=== PATIENT | male | born 1945 ===

== ENCOUNTER 2023-05-01 06:56 | Outpatient (REF) | payer MEDICARE, SELFPAY ==
[2023-05-01 07:05] LABS: MANUAL DIFF FLAG NO
[2023-05-01 07:24] LABS: Basophils Percent Auto 0.8 % (0-2); Eosinophils Absolute Auto 0.2 X10*3/uL (0.0-0.4); Eosinophils Percent Auto 3.5 % (0-4); Hematocrit 29.3 % (42.0-52.0); Hemoglobin 9.9 g/dl (14.0-18.0); Imm Gran Abs Auto 0.02 X10*3/uL (0.00-0.03); Imm Gran Pct Auto 0.4 % (0.0-0.4); Lymphocytes Absolute Auto 1.5 X10*3/uL (1.2-4.9); Lymphocytes Percent Auto 31.4 % (20-40); Mean Corpuscular HGB Conc 33.8 g/dl (31.0-36.0); Mean Corpuscular Hemoglobin 30.2 pg (27.0-33.0); Mean Corpuscular Volume 89.3 fL (80.0-98.0); Mean Platelet Volume 9.7 fL (9.4-12.4); Monocytes Absolute Auto 0.4 X10*3/uL (0.1-1.2); Neutrophils Absolute Auto 2.7 x10*3/uL (2.0-8.3); Neutrophils Percent Auto 54.9 % (45-73); Platelet Count 191 X10*3/uL (160-400); Red Blood Count 3.28 X10*6/uL (4.60-5.80); Red Cell Distribution Width 13.7 % (11.0-16.0); White Blood Count 4.9 X10*3/uL (4.8-10.8)
[2023-05-01 07:31] LABS: Alanine Aminotransferase 14 U/L (0-40); Albumin Level 3.3 g/dL (3.5-5.0); Alkaline Phosphatase 73 U/L (39-117); Anion Gap 11 (12-20); Aspartate Amino Transferase 19 U/L (5-37); Bilirubin Total 0.2 mg/dL (0.0-1.0); Blood Urea Nitrogen 22 mg/dL (9-16); Calcium 9.2 mg/dL (8.4-10.2); Carbon Dioxide 27 mmol/L (22-29); Chloride 106 mmol/L (96-108); Estimated Glomerular Filt Rate > 60; Glucose Random 80 mg/dL (60-115); Iron 55 mcg/dL (45-160); Percent Iron Saturation 24 % (15-50); Potassium 3.7 mmol/L (3.3-5.1); Sodium 140 mmol/L (135-145); Total Iron Binding Capacity 229 mcg/dL (228-428); Total Protein 6.6 g/dL (6.5-8.0); Unsaturated Iron Binding 174 ug/dL
[2023-05-01 07:42] LABS: Vitamin D 25-OH Total 20.1 ng/mL (>30)
[2023-05-01 07:49] LABS: Prostate Specific Antigen 0.81 ng/mL (<0.05-4.0); Vitamin B12 778 pg/mL (200-900)
[2023-05-04 06:44] LABS: TS Negative Control Passed; TS Panel A 0; TS Panel B 0; TS Positive Control Passed; TSpotTB Negative (Negative)
== END 2023-05-01 06:57 | disposition home or self-care (01) ==
LOC: HO.HSH2N 06:56
PROVIDERS: Visit Provider Internal Medicine Interventional Cardiology
DX: Z12.5 Encounter for screening for malignant neoplasm of prostate (principal); Z11.1 Encounter for screening for respiratory tuberculosis; I10 Essential (primary) hypertension; E03.9 Hypothyroidism, unspecified; D64.9 Anemia, unspecified; C61 Malignant neoplasm of prostate; F03.90 Unspecified dementia, unspecified severity, without behavioral disturbance, psychotic disturbance, mood disturbance, and anxiety
CPT/HCPCS: 36415; 80053; 82306; 82607; 83540; 84153; 84443; 85025; 86481

== ENCOUNTER 2023-05-04 11:19 | Outpatient (REF) | payer MEDICARE, SELFPAY | END 2023-05-04 11:20 | disposition home or self-care (01) | LOC: HO.HSH2N 11:19 | PROVIDERS: Visit Provider Internal Medicine Medical Oncology | DX: H57.89 Other specified disorders of eye and adnexa (principal) | CPT/HCPCS: 87070; 87077; 87186; 87205 ==

== ENCOUNTER 2023-05-08 07:20 | Outpatient (REF) | payer MEDICARE, SELFPAY ==
[2023-05-08 07:57] LABS: Lactate Dehydrogenase 266 U/L (118-273)
[2023-05-09 16:08] LABS: Immunoglobulin A 76 mg/dL (70-320); Immunoglobulin G 1636 mg/dL (600-1540)
== END 2023-05-08 07:21 | disposition home or self-care (01) ==
LOC: HO.HSH2N 07:20
PROVIDERS: Visit Provider Internal Medicine Interventional Cardiology
DX: D64.9 Anemia, unspecified (principal); D47.2 Monoclonal gammopathy
CPT/HCPCS: 36415; 82784; 83615

== ENCOUNTER 2023-09-08 06:43 | Outpatient (REF) | payer MEDICARE, SELFPAY ==
[2023-09-08 10:31] LABS: Prostate Specific Antigen 1.05 ng/mL (<0.05-4.0)
[2023-09-11 12:13] LABS: Testosterone, Total 11 ng/dL (250-1100)
== END 2023-09-08 06:44 | disposition home or self-care (01) ==
LOC: HO.HSH1N 06:43
PROVIDERS: Visit Provider Internal Medicine Interventional Cardiology
DX: Z12.5 Encounter for screening for malignant neoplasm of prostate (principal); C61 Malignant neoplasm of prostate
CPT/HCPCS: 36415; 84153; 84403

== ENCOUNTER 2023-09-20 09:42 | Outpatient (REF) | payer MEDICARE, SELFPAY ==
[2023-09-20 09:45] LABS: MANUAL DIFF FLAG NO
[2023-09-20 10:03] LABS: Alanine Aminotransferase 15 U/L (0-40); Albumin Level 3.3 g/dL (3.5-5.0); Alkaline Phosphatase 76 U/L (39-117); Anion Gap 12 (12-20); Aspartate Amino Transferase 18 U/L (5-37); Bilirubin Total 0.4 mg/dL (0.0-1.0); Blood Urea Nitrogen 20 mg/dL (9-16); Calcium 9.1 mg/dL (8.4-10.2); Carbon Dioxide 22 mmol/L (22-29); Chloride 106 mmol/L (96-108); Estimated Glomerular Filt Rate > 60; Glucose Random 145 mg/dL (60-115); Potassium 3.8 mmol/L (3.3-5.1); Sodium 136 mmol/L (135-145); Total Protein 7.1 g/dL (6.5-8.0)
[2023-09-20 10:07] LABS: Basophils Percent Auto 0.3 % (0-2); Eosinophils Percent Auto 0.2 % (0-4); Hematocrit 30.1 % (42.0-52.0); Hemoglobin 9.8 g/dl (14.0-18.0); Imm Gran Abs Auto 0.07 X10*3/uL (0.00-0.03); Imm Gran Pct Auto 0.8 % (0.0-0.4); Lymphocytes Absolute Auto 0.7 X10*3/uL (1.2-4.9); Lymphocytes Percent Auto 7.6 % (20-40); Mean Corpuscular HGB Conc 32.6 g/dl (31.0-36.0); Mean Corpuscular Hemoglobin 30.1 pg (27.0-33.0); Mean Corpuscular Volume 92.3 fL (80.0-98.0); Mean Platelet Volume 9.9 fL (9.4-12.4); Monocytes Absolute Auto 0.4 X10*3/uL (0.1-1.2); Monocytes Percent Auto 4.8 % (2-11); Neutrophils Absolute Auto 7.9 x10*3/uL (2.0-8.3); Neutrophils Percent Auto 86.3 % (45-73); Platelet Count 197 X10*3/uL (160-400); Red Blood Count 3.26 X10*6/uL (4.60-5.80); White Blood Count 9.1 X10*3/uL (4.8-10.8)
[2023-09-21 12:00] LABS: Adenovirus PCR Not Detected (Not Detect.); Bordetella parapertussis PCR Not Detected (Not Detect.); Bordetella pertussis PCR Not Detected (Not Detect.); Chlamydia pneumoniae PCR Not Detected (Not Detect.); Coronavirus 229E PCR Not Detected (Not Detect.); Coronavirus HKU1 PCR Not Detected (Not Detect.); Coronavirus NL63 PCR Not Detected (Not Detect.); Coronavirus OC43 PCR Not Detected (Not Detect.); Human metapneumovirus PCR Not Detected (Not Detect.); Influenza A PCR Not Detected (Not Detect.); Influenza B PCR Not Detected (Not Detect.); Mycoplasma pneumoniae PCR Not Detected (Not Detect.); Parainfluenza 1 PCR Not Detected (Not Detect.); Parainfluenza 2 PCR Not Detected (Not Detect.); Parainfluenza 3 PCR Not Detected (Not Detect.); Parainfluenza 4 PCR Not Detected (Not Detect.); RSV PCR Not Detected (Not Detect.); Rhino/Enterovirus PCR Not Detected (Not Detect.)
[2023-09-21 12:01] LABS: SARS-CoV-2 PCR Not Detected (Not Detect.)
== END 2023-09-20 09:43 | disposition home or self-care (01) ==
LOC: HO.HSH1N 09:42
PROVIDERS: Visit Provider Nurse Practitioner Acute Care
DX: R68.89 Other general symptoms and signs (principal)
CPT/HCPCS: 36415; 80053; 85025; 87633

== ENCOUNTER 2023-11-12 06:18 | Outpatient (REF) | payer MEDICARE, SELFPAY ==
[2023-11-12 07:42] LABS: Thyroid Stimulating Hormone 0.75 uIU/mL (0.32-4.0)
== END 2023-11-12 06:19 | disposition home or self-care (01) ==
LOC: HO.HSH1N 06:18
PROVIDERS: Visit Provider Internal Medicine Interventional Cardiology
DX: Z13.89 Encounter for screening for other disorder (principal)
CPT/HCPCS: 36415; 84443

== ENCOUNTER 2023-12-10 05:54 | Outpatient (REF) | payer MEDICARE, SELFPAY ==
[2023-12-10 05:59] LABS: MANUAL DIFF FLAG NO
[2023-12-10 06:09] LABS: Basophils Percent Auto 0.6 % (0-2); Eosinophils Absolute Auto 0.1 X10*3/uL (0.0-0.4); Eosinophils Percent Auto 2.9 % (0-4); Hematocrit 32.7 % (42.0-52.0); Hemoglobin 10.7 g/dl (14.0-18.0); Imm Gran Abs Auto 0.01 X10*3/uL (0.00-0.03); Imm Gran Pct Auto 0.2 % (0.0-0.4); Lymphocytes Absolute Auto 1.4 X10*3/uL (1.2-4.9); Lymphocytes Percent Auto 27.8 % (20-40); Mean Corpuscular HGB Conc 32.7 g/dl (31.0-36.0); Mean Corpuscular Hemoglobin 29.4 pg (27.0-33.0); Mean Corpuscular Volume 89.8 fL (80.0-98.0); Mean Platelet Volume 9.5 fL (9.4-12.4); Monocytes Absolute Auto 0.4 X10*3/uL (0.1-1.2); Monocytes Percent Auto 8.8 % (2-11); Neutrophils Absolute Auto 2.9 x10*3/uL (2.0-8.3); Neutrophils Percent Auto 59.7 % (45-73); Platelet Count 199 X10*3/uL (160-400); Red Blood Count 3.64 X10*6/uL (4.60-5.80); Red Cell Distribution Width 13.3 % (11.0-16.0); White Blood Count 4.9 X10*3/uL (4.8-10.8)
[2023-12-10 06:51] LABS: Alanine Aminotransferase 24 U/L (0-40); Albumin Level 3.8 g/dL (3.5-5.0); Alkaline Phosphatase 89 U/L (39-117); Anion Gap 9 (12-20); Aspartate Amino Transferase 31 U/L (5-37); Bilirubin Total 0.3 mg/dL (0.0-1.0); Blood Urea Nitrogen 30 mg/dL (9-16); Calcium 9.8 mg/dL (8.4-10.2); Carbon Dioxide 28 mmol/L (22-29); Chloride 107 mmol/L (96-108); Estimated Glomerular Filt Rate > 60; Glucose Fasting 86 mg/dL (60-99); Lactate Dehydrogenase 252 U/L (118-273); Potassium 3.9 mmol/L (3.3-5.1); Sodium 140 mmol/L (135-145); Total Protein 7.3 g/dL (6.5-8.0)
[2023-12-12 00:03] LABS: Immunoglobulin A 72 mg/dL (70-320); Immunoglobulin G 1698 mg/dL (600-1540)
[2023-12-12 10:48] LABS: Beta-2 Microglobulin, Serum 4.33 mg/L (< OR = 2.51)
[2023-12-16 16:48] LABS: Kappa, Serum 130 mg/dL (176-443); Kappa/Lambda Ratio, Serum 0.45 (1.29-2.55); Lambda, Serum 287 mg/dL (91-240)
== END 2023-12-10 05:55 | disposition home or self-care (01) ==
LOC: HO.HSH1N 05:54
PROVIDERS: Visit Provider Internal Medicine Interventional Cardiology
DX: D47.2 Monoclonal gammopathy (principal)
CPT/HCPCS: 36415; 80053; 82232; 82784; 83615; 83883; 85025

== ENCOUNTER 2024-03-18 06:09 | Outpatient (REF) | payer MEDICARE, SELFPAY ==
[2024-03-18 06:36] LABS: Appearance Urine Clear; Color Urine Yellow; Glucose Urine UA Negative (Negative); Leukocyte Esterase Urine Negative (Negative); Nitrite Urine Negative (Negative); PH 6.5 (5.0-9.0); Specific Gravity - Urine 1.015 (1.005-1.025); Urine Blood Negative (Negative); Urine Ketones Negative (Negative); Urine Protein Trace mg/dL (Neg-Trace)
[2024-03-18 06:41] LABS: Bacteria Urine None Seen (None Seen); Hyaline Casts Urine 0-2 /LPF (0-2); RBC Urine 0-2 /HPF (0-2); Squamous Epithelial Cell Urine 0-2 /HPF (0-2); WBC Urine 0-5 /HPF (0-5)
== END 2024-03-18 06:10 | disposition home or self-care (01) ==
LOC: HO.HSH1N 06:09
PROVIDERS: Visit Provider Internal Medicine Interventional Cardiology
DX: R41.82 Altered mental status, unspecified (principal)
CPT/HCPCS: 81001

== ENCOUNTER 2024-03-19 05:56 | Outpatient (REF) | payer MEDICARE, SELFPAY ==
[2024-03-19 05:59] LABS: MANUAL DIFF FLAG NO
[2024-03-19 06:23] LABS: Basophils Percent Auto 0.9 % (0-2); Eosinophils Absolute Auto 0.2 X10*3/uL (0.0-0.4); Eosinophils Percent Auto 4.1 % (0-4); Hematocrit 29.9 % (42.0-52.0); Hemoglobin 9.9 g/dl (14.0-18.0); Imm Gran Abs Auto 0.02 X10*3/uL (0.00-0.03); Imm Gran Pct Auto 0.4 % (0.0-0.4); Lymphocytes Absolute Auto 1.5 X10*3/uL (1.2-4.9); Lymphocytes Percent Auto 31.8 % (20-40); Mean Corpuscular HGB Conc 33.1 g/dl (31.0-36.0); Mean Corpuscular Hemoglobin 29.9 pg (27.0-33.0); Mean Corpuscular Volume 90.3 fL (80.0-98.0); Mean Platelet Volume 9.1 fL (9.4-12.4); Monocytes Absolute Auto 0.5 X10*3/uL (0.1-1.2); Monocytes Percent Auto 10.1 % (2-11); Neutrophils Absolute Auto 2.5 x10*3/uL (2.0-8.3); Neutrophils Percent Auto 52.7 % (45-73); Platelet Count 176 X10*3/uL (160-400); Red Blood Count 3.31 X10*6/uL (4.60-5.80); Red Cell Distribution Width 13.1 % (11.0-16.0); White Blood Count 4.7 X10*3/uL (4.8-10.8)
[2024-03-19 06:30] LABS: Alanine Aminotransferase 33 U/L (0-40); Albumin Level 3.3 g/dL (3.5-5.0); Alkaline Phosphatase 85 U/L (39-117); Anion Gap 12 (12-20); Aspartate Amino Transferase 32 U/L (5-37); Bilirubin Total 0.2 mg/dL (0.0-1.0); Blood Urea Nitrogen 29 mg/dL (9-16); Calcium 9.1 mg/dL (8.4-10.2); Carbon Dioxide 24 mmol/L (22-29); Chloride 108 mmol/L (96-108); Estimated Glomerular Filt Rate > 60; Glucose Random 84 mg/dL (60-115); Potassium 4.2 mmol/L (3.3-5.1); Sodium 140 mmol/L (135-145); Total Protein 6.6 g/dL (6.5-8.0)
[2024-03-19 06:47] LABS: Vitamin D 25-OH Total 24.5 ng/mL (>30)
[2024-03-24 12:28] LABS: Testosterone, Total 7 ng/dL (250-1100)
== END 2024-03-19 05:57 | disposition home or self-care (01) ==
LOC: HO.HSH1N 05:56
PROVIDERS: Visit Provider Internal Medicine Interventional Cardiology
DX: C61 Malignant neoplasm of prostate (principal); Z12.5 Encounter for screening for malignant neoplasm of prostate
CPT/HCPCS: 36415; 80053; 82306; 84153; 84403; 85025

== ENCOUNTER 2024-06-29 07:41 | Outpatient (REF) | payer MEDICARE, SELFPAY ==
[2024-06-29 07:44] LABS: MANUAL DIFF FLAG NO
--- OUTSIDE RECORDS SUMMARY | 2024-06-29 07:44 | XMS_ITS | Clinical Summary ---
Author Organization [facility] Address [address] [place] [address] Care Team Providers Care Neighborhood Coordinator Name Role Phone Flaquito Espinal MD Primary Care Provider + [phone] Allergies Active Allergy Reactions Criticality Noted Date Comments Doxycycline Rash Low 12/08/2019 Medications Medication Sig Dispensed Refills Start Date End Date Status amLODIPine (NORVASC) tablet 10 mg 1 tablet (10 mg total). 0 09/22/2019 Active ELIQUIS 5 MG TABS tablet Take 1 tablet (5 mg total) by mouth 2 (two) times a day. 0 11/27/2019 Active atorvastatin (LIPITOR) tablet 20 mg Take 1 tablet (20 mg total) by mouth daily. 0 10/19/2019 Active levothyroxine (SYNTHROID, LEVOXYL) tablet 125 mcg Take 1 tablet (125 mcg total) by mouth daily. 0 10/29/2019 Active metoprolol succinate (TOPROL-XL) 24 hr tablet 100 mg Take 1 tablet (100 mg total) by mouth daily. 0 10/29/2019 Active tamsulosin (FLOMAX) 0.4 MG CAPS Take 1 capsule (0.4 mg total) by mouth 2 (two) times a day. 0 10/28/2019 Active donepezil (ARICEPT) 5 MG tablet Take 1 tablet (5 mg total) by mouth every night at bedtime. 0 Active calcium citrate-vitamin D (CITRACAL+D) 315-200 MG-UNIT per tablet Take 1 tablet by mouth 2 (two) times a day. 0 Active traZODone (DESYREL) 50 MG tablet Take 1 tablet (50 mg total) by mouth every night at bedtime. 0 Active vitamin B-12 (CYANOCOBALAMIN) 500 MCG tablet Take 1 tablet (500 mcg total) by mouth daily. 0 Active ferrous sulfate 325 (65 FE) MG tablet Take 1 tablet (325 mg total) by mouth every morning with breakfast. 0 Active Active Problems No known active problems Social History Tobacco Use Types Packs/Day Years Used Date Smoking Tobacco: Former Smokeless Tobacco: Never Alcohol Use Standard Drinks/Week Comments No 0 (1 standard drink = 0.6 oz pur e alcohol) Sex and Gender Information Value Date Recorded Sex Assigned at Not on file Gender Identity Not on file Sexual Orientation Not on file Job Start Date Occupation Industry Not on file Not on file Not on file Last Filed Vital Signs Vital Sign Reading Time Taken Comments Blood Pressure 137/77 06/20/2023 10:25 AM EDT Pulse 78 06/20/2023 10:25 AM EDT Temperature 36.8 ??C (98.2 ??F) 06/20/2023 10:25 AM E DT Respiratory Rate - - Oxygen Saturation 100% 06/20/2023 10:25 AM EDT Inhaled Oxygen Concentration - - Weight 64 kg (141 lb) 06/20/2023 10:25 AM EDT Height 170.2 cm (5' 7 ) 06/20/2023 10:25 AM EDT Body Mass Index 22.08 06/20/2023 10:25 AM EDT Plan of Treatment Health Maintenance Due Date Last Done Comments Hepatitis C Screening 1944 Depression Screening 1956 Preventative Health Evaluation 1962 Fall Risk Assessment 2009 RSV Adult > 60+ Yrs or (1 - 1-dose 75+ series) 11/26/2019 COVID-19 Vaccine ( season) 2023 10/12/2020, 03/27/2020 Influenza Vaccine (#1) 2023 , 11/17/2019, 11/10/2018, Additional history exists DTap / Tdap / Td (2 - Td or Tdap) 10/29/2023 10/28/2013 Pneumococcal Vaccine Completed 02/22/2016, 10/28/2013, 04/07/2011 Shingrix-Zoster Vaccine Completed 02/01/2020, 11/21 Hepatitis B Vaccines Aged Out No long er eligible based on patient's age to complete this topic RSV Ped < 20 months Aged Out No longe r eligible based on patient's age to complete this topic Care Teams Neighborhood Coordinator Relationship Specialty Start Date End Date Flaquito Espinal MD [address] [facility] [address] [place] [address] PCP - General Geriatric Medicine 04/24/21
--- OUTSIDE RECORDS SUMMARY | 2024-06-29 07:44 | XMS_ITS | Clinical Summary ---
Author Organization [facility] Address [address] [place] [phone] Phone Care Team Providers Care Rehabilitation Therapist Name Role Phone Flaquito Espinal MD Primary Care Provider [phone] Allergies Active Allergy Reactions Criticality Noted Date Comments Doxycycline Rash Low 12/08/2019 Leuprolide Rash 01/06/2024 Medications amLODIPine (NORVASC) 10 mg tablet 1 tablet (10 mg total). 09/22/2019 Active apixaban (Eliquis) 5 mg tablet Take 1 tablet (5 mg total) by mouth 2 (two) times a day. 11/27/2019 Active calcium citrate-vitamin D (CITRACAL+D) 315 mg-5 mcg (200 unit) per tablet Take 1 tablet by mouth 2 (two) times a day. Active cyanocobalamin (VITAMIN B-12) 500 mcg tablet Take 1 tablet (500 mcg total) by mouth daily. Active ferrous sulfate 325 mg (65 mg elemental iron) tablet Take 1 tablet (325 mg total) by mouth every morning with breakfast. Active levothyroxine (SYNTHROID, LEVOTHROID) 125 mcg tablet Take 1 tablet (125 mcg total) by mouth daily. 10/29/2019 Active metoprolol succinate (TOPROL-XL) 100 mg 24 hr tablet Take 1 tablet (100 mg total) by mouth 1 (one) time each day. 10/29/2019 Active tamsulosin (FLOMAX) 0.4 mg 24 hr capsule Take 1 capsule (0.4 mg total) by mouth 2 (two) times a day. 10/28/2019 Active traZODone (DESYREL) 50 mg tablet Take 1 tablet (50 mg total) by mouth every night at bedtime. Active polyethylene glycol (PEG) 17 gram/dose oral powder 17 g 1 (one) time each day. Active docusate sodium (COLACE) 100 mg capsule Take 1 capsule (100 mg total) by mouth 2 (two) times a day. Active sertraline (ZOLOFT) 50 mg tablet Take 1 tablet (50 mg total) by mouth 1 (one) time each day. Active senna (SENOKOT) 8.6 mg tablet Take 1 tablet (8.6 mg total) by mouth 1 (one) time each day. 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 Social History Tobacco Use Types Packs/Day Years Used Date Smoking Tobacco: Former Smokeless Tobacco: Never Alcohol Use Standard Drinks/Week Comments No 0 (1 standard drink = 0.6 oz pur e alcohol) Sex and Gender Information Value Date Recorded Sex Assigned at Not on file Legal Sex Male 6:04 PM EST Gender Identity Not on file Sexual Orientation Not on file Obstetrics History Last Filed Vital Signs Vital Sign Reading Time Taken Comments Blood Pressure 168/75 12/24/2023 10:44 AM EST Pulse 68 12/24/2023 10:44 AM EST Temperature 36.9 ??C (98.5 ??F) 12/24/2023 10:[address] Respiratory Rate - - Oxygen Saturation 100% 12/24/2023 10:44 AM EST Inhaled Oxygen Concentration - - Weight 68 kg (150 lb) 12/24/2023 10:44 AM EST Height 170.2 cm (5' 7 ) 12/24/2023 10:44 AM EST Body Mass Index 23.49 12/24/2023 10:44 AM EST Plan of Treatment Upcoming Encounters Date Type Department Care Team (Late st Contact Info) Description 10/25/2024 9:45 AM EDT Office Visit [facility] Hematology Oncology [address] [place] [phone] Tiarra Soto MD [address] [place] [address] Health Maintenance Due Date Last Done Comments RSV Immunization Adult Patients (1 - 1-dose 75+ series) 11/26/2019 Cholesterol Screening (Lipid Panel) 01/26/2022 Depression Screening 01/26/2022 Falls Risk Assessment 01/26/2022 Hepatitis C Screening 01/26/2022 Social Influencers of Health Screening 01/26/2022 Hypertension/CHF/CAD Annual BMP Blood Test 01/31/2022 Medicare Annual Wellness Visit 11/09/2022 11/09/2021 COVID-19 Vaccine (4 - season) 2023 10/12/2020, 04/25/2020, 03/27/2020 DTaP,Tdap,and Td Vaccines (2 - Td or Tdap) 10/29/2023 10/28/2013 Influenza Vaccine (Season Ended) 2024 11/27/2020, 11/17/2019, 11/10/2018, Additional history exists Zoster Vaccines Completed 02/01/2020, 06/2019, 11/22/2019, Additional history exists Pneumococcal Vaccine: 50+ Years Completed 08/28/2022, 02/22/2016, 10/28/2013, Additional history exists HIB Vaccines Aged Out No longer eligi ble based on patient's age to complete this topic HPV Vaccines Aged Out No longer eligi ble based on patient's age to complete this topic Hepatitis A Vaccines Aged Out No long er eligible based on patient's age to complete this topic Hepatitis B Vaccines Aged Out No long er eligible based on patient's age to complete this topic IPV Vaccines Aged Out No longer eligi ble based on patient's age to complete this topic MMR Vaccines Aged Out No longer eligi ble based on patient's age to complete this topic Meningococcal ACWY Vaccine Aged Out N o longer eligible based on patient's age to complete this topic Meningococcal B Vaccine Aged Out No l onger eligible based on patient's age to complete this topic RSV Immunization Patients Under 20 months Aged Out No longer eligible based on patient's age to complete this topic Varicella Vaccines Aged Out No longer eligible based on patient's age to complete this topic Insurance MEDICARE Care Teams Rehabilitation Therapist Relationship Specialty Start Date End Date Flaquito Espinal MD [address] [facility] [address] [place], [place] PCP - General Geriatric Medicine 04/24/21
[2024-06-29 08:01] LABS: Basophils Absolute Auto 0.1 X10*3/uL (0.0-0.2); Basophils Percent Auto 1.1 % (0-2); Eosinophils Absolute Auto 0.2 X10*3/uL (0.0-0.4); Eosinophils Percent Auto 4.7 % (0-4); Hematocrit 30.9 % (42.0-52.0); Hemoglobin 10.4 g/dl (14.0-18.0); Imm Gran Abs Auto 0.01 X10*3/uL (0.00-0.03); Imm Gran Pct Auto 0.2 % (0.0-0.4); Lymphocytes Absolute Auto 1.2 X10*3/uL (1.2-4.9); Mean Corpuscular HGB Conc 33.7 g/dl (31.0-36.0); Mean Corpuscular Hemoglobin 30.5 pg (27.0-33.0); Mean Corpuscular Volume 90.6 fL (80.0-98.0); Mean Platelet Volume 9.3 fL (9.4-12.4); Monocytes Absolute Auto 0.5 X10*3/uL (0.1-1.2); Monocytes Percent Auto 11.2 % (2-11); Neutrophils Absolute Auto 2.6 x10*3/uL (2.0-8.3); Neutrophils Percent Auto 56.8 % (45-73); Platelet Count 179 X10*3/uL (160-400); Red Blood Count 3.41 X10*6/uL (4.60-5.80); Red Cell Distribution Width 12.9 % (11.0-16.0); White Blood Count 4.7 X10*3/uL (4.8-10.8)
[2024-06-29 08:18] LABS: Anion Gap 13 (12-20); Blood Urea Nitrogen 36 mg/dL (9-16); Carbon Dioxide 24 mmol/L (22-29); Chloride 106 mmol/L (96-108); Estimated Glomerular Filt Rate > 60; Glucose Random 89 mg/dL (60-115); Potassium 3.9 mmol/L (3.3-5.1); Sodium 139 mmol/L (135-145)
== END 2024-06-29 07:42 | disposition home or self-care (01) ==
LOC: HO.HSH1N 07:41
PROVIDERS: Visit Provider Internal Medicine Interventional Cardiology
DX: I10 Essential (primary) hypertension (principal); D64.9 Anemia, unspecified
CPT/HCPCS: 36415; 80048; 85025

== ENCOUNTER 2024-08-19 06:23 | Outpatient (REF) | payer MEDICARE, SELFPAY ==
--- OUTSIDE RECORDS SUMMARY | 2024-08-19 06:26 | XMS_ITS | Clinical Summary ---
Author Organization [facility] Address [address] [place] [address] Care Team Providers Care Credit Coordinator Name Role Phone Flaquito Espinal MD Primary Care Provider + [phone] Allergies Active Allergy Reactions Criticality Noted Date [...] 78 06/20/2023 10:25 AM EDT Temperature 36.8 C (98.2 F) 06/20/2023 10:25 AM EDT Respiratory Rate - - Oxygen Saturation 100% [...] COVID-19 Vaccine ( season) 2023 10/12/2020, 03/27/2020 DTap / Tdap / Td (2 - Td or Tdap) 10/29/2023 10/28/2013 Influenza Vaccine (Season Ended) 2024 11/27/2020, 11/17/2019, 11/10/2018, Additional history exists Pneumococcal Vaccine Completed 02/22/2016, 10/28/2013, 04/07/2011 Shingrix-Zoster Vaccine Completed 02/01/2020, 11/21 Hepatitis B Vaccines Aged Out No long er eligible based on patient's age to complete this topic RSV Ped < 20 months Aged Out No longe r eligible based on patient's age to complete this topic Care Teams Credit Coordinator Relationship Specialty Start Date End Date Flaquito Espinal MD [address] [facility] [address] [place] [address] PCP - General Geriatric Medicine 04/24/21
[2024-08-19 07:22] LABS: Prostate Specific Antigen 1.99 ng/mL (<0.05-4.0)
== END 2024-08-19 06:24 | disposition home or self-care (01) ==
LOC: HO.HSH1N 06:23
PROVIDERS: Visit Provider Internal Medicine Interventional Cardiology
DX: Z12.5 Encounter for screening for malignant neoplasm of prostate (principal); C61 Malignant neoplasm of prostate
CPT/HCPCS: 36415; 84153; 84403

== ENCOUNTER 2024-09-02 06:30 | Outpatient (REF) | payer MEDICARE, SELFPAY ==
[2024-09-02 07:26] LABS: Anion Gap 12 (12-20); Blood Urea Nitrogen 42 mg/dL (9-16); Calcium 8.8 mg/dL (8.4-10.2); Carbon Dioxide 26 mmol/L (22-29); Chloride 106 mmol/L (96-108); Estimated Glomerular Filt Rate 54; Potassium 3.8 mmol/L (3.3-5.1); Sodium 140 mmol/L (135-145)
== END 2024-09-02 06:31 | disposition home or self-care (01) ==
LOC: HO.HSH1N 06:30
PROVIDERS: Visit Provider Internal Medicine Interventional Cardiology
DX: I10 Essential (primary) hypertension (principal)
CPT/HCPCS: 36415; 80048

== ENCOUNTER 2024-10-21 06:53 | Outpatient (REF) | payer MEDICARE, SELFPAY ==
--- OUTSIDE RECORDS SUMMARY | 2024-10-21 06:57 | XMS_ITS | Clinical Summary ---
Author Organization [facility] Address [address] [place] [phone] Phone Care Team Providers Care Hospice Clinical Marketer Name Role Phone Flaquito Espinal MD Primary Care Provider [phone] Allergies Active Allergy Reactions Criticality Noted Date [...] 68 12/24/2023 10:44 AM EST Temperature 36.9 C (98.5 F) 12/24/2023 10:44 AM EST Respiratory Rate - - Oxygen Saturation 100% [...] Description 10/25/2024 9:45 AM EDT Office Visit [facility] Hematology Oncology [address] [place] [phone] Tiarra Soto MD [address] [place] [address] Health Maintenance Due Date Last Done Comments RSV Immunization Adult Patients (1 - 1-dose 75+ series) 11/26/2019 Cholesterol Screening (Lipid Panel) 01/26/2022 Falls Risk Assessment 01/26/2022 Hepatitis C Screening 01/26/2022 Social Influencers of Health Screening 01/26/2022 Hypertension/CHF/CAD Annual BMP Blood Test 01/31/2022 Medicare Annual Wellness Visit 11/09/2022 11/09/2021 COVID-19 Vaccine (4 - season) 2023 10/12/2020, 04/25/2020, 03/27/2020 DTaP,Tdap,and Td Vaccines (2 - Td or Tdap) 10/29/2023 10/28/2013 Depression Screening 02/18/2024 Influenza Vaccine (#1) 2024 , 11/17/2019, 11/10/2018, Additional history exists Zoster Vaccines [...] complete this topic Insurance MEDICARE Care Teams Hospice Clinical Marketer Relationship Specialty Start Date End Date Flaquito Espinal MD [address] [facility] [address] [place], [place] PCP - General Geriatric Medicine 04/24/21
--- OUTSIDE RECORDS SUMMARY | 2024-10-21 06:57 | XMS_ITS | Clinical Summary ---
Author Organization [facility] Address [address] [place] [address] Care Team Providers Care Elementary Reading Tutor Name Role Phone Flaquito Espinal MD Primary Care Provider + [phone] Allergies Active Allergy Reactions Criticality Noted Date [...] or (1 - 1-dose 75+ series) 11/26/2019 DTap / Tdap / Td (2 - Td or Tdap) 10/29/2023 10/28/2013 COVID-19 Vaccine ( season) 2024 10/12/2020, 03/27/2020 Influenza Vaccine (#1) 2024 , 11/17/2019, 11/10/2018, Additional history exists Pneumococcal Vaccine Completed 02/22/2016, 10/28/2013, 04/07/2011 Shingrix-Zoster Vaccine Completed 02/01/2020, 11/21 Hepatitis B Vaccines Aged Out No long er eligible based on patient's age to complete this topic RSV Ped < 20 months Aged Out No longe r eligible based on patient's age to complete this topic Care Teams Elementary Reading Tutor Relationship Specialty Start Date End Date Flaquito Espinal MD [address] [facility] [address] [place] [address] PCP - General Geriatric Medicine 04/24/21
[2024-10-21 06:58] LABS: MANUAL DIFF FLAG NO
[2024-10-21 07:53] LABS: Hematocrit 29.8 % (42.0-52.0); Hemoglobin 9.8 g/dl (14.0-18.0); Imm Gran Abs Auto 0.01 X10*3/uL (0.00-0.03); Imm Gran Pct Auto 0.2 % (0.0-0.4); Lymphocytes Absolute Auto 1.4 X10*3/uL (1.2-4.9); Mean Corpuscular HGB Conc 32.9 g/dl (31.0-36.0); Mean Corpuscular Hemoglobin 30.1 pg (27.0-33.0); Mean Corpuscular Volume 91.4 fL (80.0-98.0); NRBC Abs Auto 0.000 X10*3/uL (0.0-0.012); NRBC Pct Auto 0.0 /100WBC (0.0-0.2); Platelet Count 195 X10*3/uL (160-400); Red Blood Count 3.26 X10*6/uL (4.60-5.80); White Blood Count 5.2 X10*3/uL (4.8-10.8)
[2024-10-21 08:33] LABS: Alanine Aminotransferase 27 U/L (0-40); Albumin Level 3.6 g/dL (3.5-5.0); Alkaline Phosphatase 79 U/L (39-117); Anion Gap 11 (12-20); Aspartate Amino Transferase 28 U/L (5-37); Blood Urea Nitrogen 37 mg/dL (9-16); Calcium 9.0 mg/dL (8.4-10.2); Carbon Dioxide 24 mmol/L (22-29); Chloride 108 mmol/L (96-108); Estimated Glomerular Filt Rate 53; Potassium 3.6 mmol/L (3.3-5.1); Sodium 139 mmol/L (135-145); Total Protein 6.5 g/dL (6.5-8.0)
[2024-10-21 08:52] LABS: Thyroid Stimulating Hormone 8.69 uIU/mL (0.32-4.0)
== END 2024-10-21 06:54 | disposition home or self-care (01) ==
LOC: HO.HSH1N 06:53
PROVIDERS: Visit Provider Internal Medicine Interventional Cardiology
DX: I10 Essential (primary) hypertension (principal); Z47.89 Encounter for other orthopedic aftercare
CPT/HCPCS: 36415; 80053; 84443; 85025

== ENCOUNTER 2024-12-09 06:02 | Outpatient (REF) | payer MEDICARE, SELFPAY ==
--- OUTSIDE RECORDS SUMMARY | 2024-12-09 06:05 | XMS_ITS | Clinical Summary ---
Author Organization [facility] Address [address] [place] [address] Care Team Providers Care Credit Reporter Name Role Phone Flaquito Espinal MD Primary Care Provider + [phone] Allergies Active Allergy Reactions Criticality Noted Date [...] Health Maintenance Due Date Last Done Comments Depression Screening 1956 Preventative Health Evaluation 1962 Fall Risk Assessment 2009 RSV Adult > 60+ Yrs or (1 - 1-dose 75+ series) 11/26/2019 DTap / Tdap / Td (2 - Td or Tdap) 10/29/2023 10/28/2013 COVID-19 Vaccine (3 - season) 2024 10/12/2020, 03/27/2020 Influenza Vaccine (#1) [...] to complete this topic Care Teams Credit Reporter Relationship Specialty Start Date End Date Flaquito Espinal MD [address] [facility] [address] [place] [phone] PCP - General Geriatric Medicine 04/24/21
[2024-12-09 06:06] LABS: MANUAL DIFF FLAG NO
[2024-12-09 06:16] LABS: Hematocrit 29.9 % (42.0-52.0); Hemoglobin 9.9 g/dl (14.0-18.0); Imm Gran Abs Auto 0.03 X10*3/uL (0.00-0.03); Imm Gran Pct Auto 0.6 % (0.0-0.4); Lymphocytes Absolute Auto 1.2 X10*3/uL (1.2-4.9); Mean Corpuscular HGB Conc 33.1 g/dl (31.0-36.0); Mean Corpuscular Hemoglobin 30.1 pg (27.0-33.0); Mean Corpuscular Volume 90.9 fL (80.0-98.0); NRBC Abs Auto 0.000 X10*3/uL (0.0-0.012); NRBC Pct Auto 0.0 /100WBC (0.0-0.2); Platelet Count 197 X10*3/uL (160-400); Red Blood Count 3.29 X10*6/uL (4.60-5.80); White Blood Count 5.2 X10*3/uL (4.8-10.8)
[2024-12-14 15:23] LABS: Kappa, Serum 124 mg/dL (176-443); Kappa/Lambda Ratio, Serum 0.47 (1.29-2.55); Lambda, Serum 266 mg/dL (91-240)
== END 2024-12-09 06:03 | disposition home or self-care (01) ==
LOC: HO.HSH1N 06:02
PROVIDERS: Visit Provider Internal Medicine Interventional Cardiology
DX: I10 Essential (primary) hypertension (principal); F32.A Depression, unspecified
CPT/HCPCS: 36415; 82784; 83883; 85025